=== PATIENT | male | born 1940 | race Caucasian/White ===

== ENCOUNTER 2018-03-12 11:22 | Emergency (ER) | payer MEDICARE ==
[~2018-03-12] VITALS: Ht 188 cm; Wt 127.3 kg
[~2018-03-12 11:22] MED LIST: LOPID 600M600 MG/TAB; LOPRESSOR 550 MG/TAB PO; LOTENSIN HCT 101 TAB PO; MOBIC15 MG PO; MULTIPLE VITAMI1 CAP; NIACIN500 M3; PRAVACHOL80 MG; PRILOTC; PRINZIDE 12.5 M1 TAB; VITAMIN B-1000 MCG/T; VITAMIN C PUR1000 MG; VITAMIN E1000 U/CAP
[2018-03-12 12:35] VITALS: BP 153/76; PULSE 62; TEMP 97.3
== END 2018-03-12 12:35 | disposition home or self-care (01) ==
LOC: COL.ER 11:22
DX: S61.201A Unspecified open wound of left index finger without damage to nail, initial encounter (principal); I10 Essential (primary) hypertension; E78.5 Hyperlipidemia, unspecified; Z87.891 Personal history of nicotine dependence; W26.8XXA Contact with other sharp object(s), not elsewhere classified, initial encounter; Y92.009 Unspecified place in unspecified non-institutional (private) residence as the place of occurrence of the external cause

== ENCOUNTER → 2019-05-18 | Outpatient (CLI) | payer MEDICARE | LOC: DIA.ED 12:44 | DX: E11.9 Type 2 diabetes mellitus without complications (principal); E78.5 Hyperlipidemia, unspecified; I10 Essential (primary) hypertension; E66.9 Obesity, unspecified | CPT/HCPCS: G0108 ==

== ENCOUNTER → 2019-09-08 | Outpatient (CLI) | payer MEDICARE | LOC: DIA.ED 11:28 | DX: E11.9 Type 2 diabetes mellitus without complications (principal); E78.5 Hyperlipidemia, unspecified; Z68.35 Body mass index [BMI] 35.0-35.9, adult; I10 Essential (primary) hypertension ==

== ENCOUNTER → 2020-01-27 | Outpatient (CLI) | payer MEDICARE | LOC: DIA.ED 01-12 11:21 | DX: E11.9 Type 2 diabetes mellitus without complications (principal); E66.8 Other obesity; E78.5 Hyperlipidemia, unspecified; I10 Essential (primary) hypertension ==

== ENCOUNTER → 2020-02-29 | Outpatient (CLI) | payer MEDICARE | LOC: MHCPAIN 13:08 | DX: M47.817 Spondylosis without myelopathy or radiculopathy, lumbosacral region (principal); M54.5 Low back pain; M96.1 Postlaminectomy syndrome, not elsewhere classified; G89.29 Other chronic pain | CPT/HCPCS: G0463 ==

== ENCOUNTER → 2020-10-25 | Outpatient (CLI) | payer MEDICARE | LOC: COL.RAD 08:09 | DX: N28.89 Other specified disorders of kidney and ureter (principal); N18.32 Chronic kidney disease, stage 3b ==

== ENCOUNTER 2021-06-26 13:44 | Outpatient (CLI) | payer MEDICARE ==
[~2021-06-26] VITALS: Ht 182.9 cm; Wt 78.0 kg
[2021-06-26] VITALS (7 sets, daily range): BP systolic 127–151; BP diastolic 68–96; PULSE 75–88; TEMP 100.5
[~2021-06-26 13:44] MED LIST changes: +PREDNISONE10 MG PO
[2021-06-26] MEDS ORDERED: TURMERIC-TAMAR250 MG PO (13:45)
[2021-06-26] MEDS ORDERED: ALOE VERA CONCE1 CAP PO (14:04)
[2021-06-26] MEDS ORDERED: TYLENOL 8 HR PO (14:05)
[2021-06-26] MEDS ORDERED: VITAMIN FLUSH-F1 CAP PO (14:05)
[2021-06-26] MEDS ORDERED: VITAMIN C500 MG PO (14:05)
[2021-06-26] MEDS ORDERED: LOPRESSOR 225 MG/TAB PO (14:06)
[2021-06-26] MEDS ORDERED: COMPLETE MULTI1 TAB PO (14:06)
[2021-06-26] MEDS ORDERED: LOPID 600M600 MG/TAB PO (14:06)
[2021-06-26] MEDS ORDERED: PRIL40 PO (14:06)
[2021-06-26] MEDS ORDERED: PRAVACHOL80 MG PO (14:07)
[2021-06-26] MEDS ORDERED: HYZAAR 50-12.1 UDTAB PO (14:07)
--- NOTE | 2021-06-26 15:14 | NUR ---
Pt tolerated infusion and observation period without issue. INT DC'd with catheter intact. He is assisted to restroom with steady gait, and will be escorted out to ED entrance.
== END 2021-06-26 18:08 | disposition home or self-care (01) ==
LOC: EUO 13:44
DX: U07.1 COVID-19 (principal); E11.22 Type 2 diabetes mellitus with diabetic chronic kidney disease; I51.9 Heart disease, unspecified
CPT/HCPCS: M0245

== ENCOUNTER → 2022-11-13 | Outpatient (CLI) | payer MEDICARE ==
[~2022-11-13] VITALS: Ht 185.4 cm; Wt 118.4 kg
[~2022-11-13] MED LIST changes: +ALOE VERA CONCE1 CAP PO; +COMPLETE MULTI1 TAB PO; +HYZAAR 50-12.1 UDTAB PO; +LOPID 600M600 MG/TAB PO; +LOPRESSOR 225 MG/TAB PO; +PRAVACHOL80 MG PO; +PRIL40 PO; +TURMERIC-TAMAR250 MG PO; +TYLENOL 8 HR PO; +VITAMIN C500 MG PO; +VITAMIN FLUSH-F1 CAP PO
[2022-11-13 10:06] VITALS: BP 167/91; PULSE 67; TEMP 97.7
[2022-11-13 12:03] VITALS: BP 161/93; PULSE 68
[2022-11-13 12:10] VITALS: BP 160/99; PULSE 68
[2022-11-13 12:15] VITALS: BP 138/96; PULSE 66
[2022-11-13 12:30] VITALS: BP 142/90; PULSE 67
== END ==
LOC: COL.RAD 06:45
DX: M75.111 Incomplete rotator cuff tear or rupture of right shoulder, not specified as traumatic (principal); S46.212A Strain of muscle, fascia and tendon of other parts of biceps, left arm, initial encounter; M75.22 Bicipital tendinitis, left shoulder
CPT/HCPCS: J2704; J3010